=== PATIENT | female | born 1975 | race American Indian/Alaskan Native ===

== ENCOUNTER 2021-01-05 09:11 | Emergency (ER) | payer OTHER ==
--- NOTE | 2021-01-05 10:17 | Emergency Department Report ---
ED Shortness of Breath HPI - General Chief Complaint: Weakness Stated Complaint: COVID+ Time Seen by Provider: 01/05/21 10:11 Source: patient Mode of arrival: Ambulatory Limitations: No Limitations - History of Present Illness Initial Comments: 45 yo AA female comes to ER co covid19 pos test with persistent symptoms. She states she was diagnosed 10 days ago and she is not feeling better. PCP gave her "meds" and she can not tell me what they, she adds she could not take them because they made her nauseated Complaining of cough and fatigue. Intermittent chills and fever. No chest pain. And she reports SOB is much better. Pos sorethroat and headache. Oxygen sat 99% on room air on admit. Non septic appearing on exam. No tachycardia, hypoxia or hypotension. MD Complaint: shortness of breath -: Gradual, days(s) Severity: moderate Consistency: constant Improves With: nothing Worsens With: nothing Known History Of: other Context: recent URI Associated Symptoms: denies other symptoms Treatments Prior to Arrival: other - Related Data Home Oxygen Therapy: No Previous Rx's Medication Instructions Recorded Last Taken Type Azithromycin [Zithromax Z-ESTHER] 250 mg PO DAILY #6 tablet 01/05/21 Unknown Rx predniSONE [Deltasone] 20 mg PO DAILY #5 tablet 01/05/21 Unknown Rx Allergies Allergy/AdvReac Type Severity Reaction Status Date / Time No Known Allergies Allergy Unverified 12/06/18 11:34 ED Review of Systems ROS: Stated complaint: COVID+ Other details as noted in HPI Comment: All other systems reviewed and negative ED Past Medical Hx - Past Medical History Previous Medical History?: Yes - Surgical History Past Surgical History?: No - Family History Family history: no significant - Social History Smoking Status: Current Every Day Smoker Substance Use Type: Alcohol - Medications Home Medications: Home Medications Medication Instructions Recorded Confirmed Last Taken Type Azithromycin [Zithromax Z-ESTHER] 250 mg PO DAILY #6 tablet 01/05/21 Unknown Rx predniSONE [Deltasone] 20 mg PO DAILY #5 tablet 01/05/21 Unknown Rx ED Physical Exam - General Limitations: No Limitations General appearance: alert, in no apparent distress - Head Head exam: Present: atraumatic, normocephalic - Eye Eye exam: Present: normal appearance - ENT ENT exam: Present: mucous membranes moist - Neck Neck exam: Present: normal inspection - Respiratory Respiratory exam: Present: normal lung sounds bilaterally. Absent: respiratory distress - Cardiovascular Cardiovascular Exam: Present: regular rate, normal rhythm. Absent: systolic mur mur, diastolic murmur, rubs, gallop - GI/Abdominal GI/Abdominal exam: Present: soft, normal bowel sounds - Extremities Exam Extremities exam: Present: normal inspection - Back Exam Back exam: Present: normal inspection - Neurological Exam Neurological exam: Present: alert, oriented X3 - Psychiatric Psychiatric exam: Present: normal affect, normal mood - Skin Skin exam: Present: warm, dry, intact, normal color. Absent: rash ED Course Vital Signs 01/05/21 10:58 Temperature 99.2 F Pulse Rate 105 H Respiratory 18 Rate Blood Pressure 118/62 [Right] O2 Sat by Pulse 99 Oximetry ED Medical Decision Making - Lab Data Result diagrams: 01/05/21 10:44 01/05/21 10:44 - Radiology Data Radiology results: report reviewed, image reviewed SEE REPORT - Medical Decision Making Lab Results 01/05/21 01/05/21 01/05/21 Range/Units 10:44 10:44 10:44 WBC 4.4 L (4.5-11.0) K/mm3 RBC 4.77 (3.65-5.03) M/mm3 Hgb 16.3 H (10.1-14.3) gm/dl Hct 48.6 H (30.3-42.9) % MCV 102 H (79-97) fl MCH 34 H (28-32) pg MCHC 34 (30-34) % RDW 12.9 L (13.2-15.2) % Plt Count 264 (140-440) K/mm3 Sodium 137 (137-145) mmol/L Potassium 3.5 L (3.6-5.0) mmol/L Chloride 96.8 L (98-107) mmol/L Carbon Dioxide 29 (22-30) mmol/L Anion Gap 15 mmol/L BUN 8 (7-17) mg/dL Creatinine 0.8 (0.6-1.2) mg/dL Estimated GFR > 60 ml/min BUN/Creatinine Ratio 10 % Glucose 122 H (65-100) mg/dL Lactic Acid 1.40 (0.7-2.0) mmol/L Calcium 9.6 (8.4-10.2) mg/dL Total Bilirubin 0.90 (0.1-1.2) mg/dL AST 69 H (5-40) units/L ALT 44 (7-56) units/L Alkaline Phosphatase 100 (35-129) units/L Total Protein 8.6 H (6.3-8.2) g/dL Albumin 4.3 (3.9-5) g/dL Albumin/Globulin Ratio 1.0 % Vital Signs 01/05/21 10:58 Temperature 99.2 F Pulse Rate 105 H Respiratory 18 Rate Blood Pressure 118/62 [Right] O2 Sat by Pulse 99 Oximetry known covid pos- she states she is not getting better xray noted labs noted 1L NS/ SOLUMEDROL/ IV AZITHROMYCIN - reported feeling better p hydration on dc exam pt ambulatory, non ill and non toxic. Ambulatory sat 99 on room air. Taking PO. no CP or sob. HR 90 on discharge per provider exam. dc home with dc plan of care including diet, activity, medications and follow up. Pt verbalizes understanding of plan of care. - Differential Diagnosis KNOWN COVID; RO [facility] Critical care attestation.: If time is entered above; I have spent that time in minutes in the direct care of this critically ill patient, excluding procedure time. ED Disposition Clinical Impression: COVID-19, Pneumonia Disposition: HOME / SELF CARE / HOMELESS Is pt being admited?: No Does the pt Need Aspirin: No Condition: Stable Instructions: COVID-19, Bacterial Pneumonia (ED) Additional Instructions: DIET TOLERATED STAY WELL HYDRATED MOTRIN OR TYLENOL FOR PAIN MED ORDERED TODAY FOLLOW UP WITH PCP SUNDAY REFERRAL BELOW OVER THE COUNTER VITAMIN C AND ZINC SUPPLEMENTS MAY HELP Prescriptions: predniSONE [Deltasone] 20 mg PO DAILY #5 tablet Azithromycin [Zithromax Z-ESTHER] 250 mg PO DAILY #6 tablet Referrals: PATTI DE MD [Staff Physician] - 3-5 Days Forms: Work/School Release Form(ED) Time of Disposition: 12:13
[2021-01-05 11:02] VITALS: BP 118/62
[2021-01-05 11:03] LABS: Hematocrit 48.6 % (30.3-42.9); Hemoglobin 16.3 gm/dl (10.1-14.3); Mean Corpuscular HGB Conc 34 % (30-34); Mean Corpuscular Volume 102 fl (79-97); Platelet Count 264 K/mm3 (140-440); Red Blood Count 4.77 M/mm3 (3.65-5.03); Red Cell Distribution Width 12.9 % (13.2-15.2)
[2021-01-05 11:27] LABS: Alanine Aminotransferase 44 units/L (7-56); Albumin 4.3 g/dL (3.9-5); BUN/Creatinine Ratio 10; Blood Urea Nitrogen 8 mg/dL (7-17); Calcium 9.6 mg/dL (8.4-10.2); Hemolysis Index 3
--- NOTE | 2021-01-05 11:38 | XRay Report ---
CHEST 2 VIEWS INDICATION / CLINICAL INFORMATION: SOB. COMPARISON: None available. FINDINGS: SUPPORT DEVICES: None. HEART / MEDIASTINUM: No significant abnormality. LUNGS / PLEURA: There are patchy opacities and densities in the lower lungs left greater the right. N o pneumothorax. ADDITIONAL FINDINGS: Scoliotic curvature the spine IMPRESSION: 1. Bilateral lower lobe patchy opacities Signer Name: Lenny Torres MD Signed: 01/05/2021 11:34 AM Workstation Name: [id number]
[2021-01-05] MEDS ORDERED: POTASSIUM CHLORIDE ER 20 MEQ TAB PO ONE (11:45)
[2021-01-05] MEDS ORDERED: SODIUM CHLORIDE 0.9% 1000 ML 1,000 ML IV ONE (11:45)
[2021-01-05] MEDS ORDERED: AZITHROMYCIN/NS 500 MG/250 ML 500 MG/250 ML BAG IV ONE (11:46)
[2021-01-05] MEDS ORDERED: methylPREDNISolone Sod Succinate 125 MG/2 ML INJ IV ONE (12:12)
== END 2021-01-05 15:25 | disposition home or self-care (01) ==
LOC: ED 09:11
DX: U07.1 COVID-19 (principal); J18.9 Pneumonia, unspecified organism; F17.200 Nicotine dependence, unspecified, uncomplicated; Z72.89 Other problems related to lifestyle; Z79.899 Other long term (current) drug therapy
CPT/HCPCS: 36415; 71046; 80053; 82140; 85027; 96365; 96375; 99284; J0456; J2930; J7030